=== PATIENT | female | born 1965 | race Caucasian/White ===

== ENCOUNTER 2018-05-27 07:05 | Day surgery (SDC) | payer MEDICAID ==
[2018-05-27] MEDS: CEFAZOLIN 1 GM/50 ML (PMX) 50 ML IVPB ×2 (08:00→10:30)
[2018-05-27] MEDS: SOD CHLORIDE 0.9% 1,000 ML IV (08:00)
[2018-05-27] MEDS: FENTAnyl 50 MCG/ML VIAL (10:32)
[2018-05-27] MEDS: MIDAZOLAM 1 MG/ML 2 ML INJ (10:34)
[2018-05-27] MEDS: LIDOCAINE 1%/EPI (1:100,000) (MDV) 20 ML (10:35)
[2018-05-27] MEDS: POLYMYXIN/BACITRACIN 1L IRRIG IRR (10:45)
[2018-05-27] MEDS: HEPARIN 1000 UNITS/ML 10 ML INJ (10:45)
[2018-05-27] MEDS ORDERED: HYDROCODONE/APAP (5/325) TAB PO (11:00)
== END 2018-05-27 12:20 | disposition home or self-care (01) ==
LOC: SDS 07:05
DX: C50.912 Malignant neoplasm of unspecified site of left female breast (principal)
CPT/HCPCS: 36561; 76942

== ENCOUNTER 2018-10-05 06:16 | Inpatient (IN) | payer MEDICAID ==
[2018-10-05 08:02] LABS: ADD MAN DIFF? NO
[2018-10-05 08:04] LABS: BASOPHILS % 0.7 % (0.0-2.0); EOSINOPHILS # 0.2 10^3/ul (0.0-0.5); EOSINOPHILS % 2.6 % (0.0-7.0); HEMATOCRIT 36.7 % (37.0-47.0); HEMOGLOBIN 11.8 g/dl (12.0-16.0); LYMPHOCYTES % 33.1 % (15.0-51.0); MEAN CORPUSCULAR HEMOGLOBIN 29.2 pg (29.0-33.0); MEAN CORPUSCULAR HGB CONC 32.2 g/dl (32.0-37.0); MEAN CORPUSCULAR VOLUME 90.8 fl (82.0-101.0); MEAN PLATELET VOLUME 9.1 fl (7.4-10.4); MONOCYTE # 0.5 10^3/ul (0.3-0.9); MONOCYTES % 7.7 % (0.0-11.0); NEUTROPHIL # 3.4 10^3/ul (1.6-7.5); NEUTROPHILS % 55.7 % (39.0-77.0); PLATELET COUNT 305 10^3/UL (140-415); RED BLOOD COUNT 4.04 10^6/ul (4.20-5.40); RED CELL DISTRIBUTION WIDTH 16.1 % (11.5-14.5)
[2018-10-05 08:04] LABS: WHITE BLOOD COUNT 6.1 10^3/ul (4.8-10.8)
[2018-10-05] MEDS ORDERED: FAMOTIDINE 20 MG INJ (08:34)
[2018-10-05] MEDS ORDERED: MIDAZOLAM 1 MG/ML 2 ML INJ (08:34)
[2018-10-05] MEDS ORDERED: CEFAZOLIN 1 GM INJ (08:34)
[2018-10-05] MEDS ORDERED: DESFLURANE 15 MIN (08:34)
[2018-10-05] MEDS ORDERED: FENTAnyl 50 MCG/ML VIAL (08:34)
[2018-10-05] MEDS ORDERED: LIDOCAINE 2% (SDV) 5 ML INJ (08:34)
[2018-10-05] MEDS ORDERED: ONDANSETRON 4 MG INJ (08:34)
[2018-10-05] MEDS ORDERED: PROPOFOL 200 MG INJ (08:34)
[2018-10-05] MEDS ORDERED: DEXAMETHASONE 4 MG/ML 5 ML INJ (08:35)
[2018-10-05] MEDS: SOD CHLORIDE 0.9% 1,000 ML IV (10:33)
[2018-10-05] MEDS: ACETAMINOPHEN 500 MG TAB PO (10:47)
[2018-10-05] MEDS ORDERED: HYDROmorphONE 1 MG/5 ML IV SYRINGE IV (11:00)
[2018-10-05] MEDS ORDERED: OXYCODONE/ACETAMINOPHEN (5/325) TAB PO ×2 (11:00)
[2018-10-05] MEDS ORDERED: ALBUTEROL 0.083% (NEB) 2.5 MG/3 ML AMP HHN (11:00)
[2018-10-05] MEDS ORDERED: LABETALOL HCL 20MG INJ IV (11:00)
[2018-10-05] MEDS ORDERED: DIPHENHYDRAMINE 50 MG INJ IV (11:00)
[2018-10-05] MEDS ORDERED: hydrALAzine 20 MG INJ IV (11:00)
[2018-10-05] MEDS ORDERED: EPHEDrine 25 MG/5 ML SYG IV (11:00)
[2018-10-05] MEDS ORDERED: FENTAnyl 50 MCG/ML VIAL IV ×2 (11:00)
[2018-10-05] MEDS ORDERED: ONDANSETRON 4 MG INJ IV ×2 (11:00→12:00)
[2018-10-05] MEDS ORDERED: morphine 2 MG INJ IV ×3 (11:00→12:00)
[2018-10-05] MEDS ORDERED: MEPERIDINE 25 MG INJ IV (11:00)
[2018-10-05 11:03] LABS: ALANINE AMINOTRANSFERASE 32 IU/L (13-69); ALBUMIN 4.5 g/dl (3.3-4.9); ALKALINE PHOSPHATASE 85 IU/L (42-121); ANION GAP 7 (5-13); ASPARTATE AMINO TRANSFERASE 30 IU/L (15-46); BILIRUBIN,INDIRECT 0.5 mg/dl (0-1.1); BILIRUBIN,TOTAL 0.5 mg/dl (0.2-1.3); BLOOD UREA NITROGEN 12 mg/dl (7-20); CARBON DIOXIDE 31 mmol/L (21-31); CHLORIDE 105 mmol/L (97-110); CREATININE 0.51 mg/dl (0.44-1.00); Estimated GFR > 60 mL/min (>60); GLUCOSE 114 mg/dl (70-220); POTASSIUM 3.6 mmol/L (3.5-5.1); SODIUM 143 mmol/L (135-144); TOTAL PROTEIN 7.7 g/dl (6.1-8.1)
[2018-10-05 11:08] LABS: CALCIUM 10.4 mg/dl (8.4-10.2)
[2018-10-05] MEDS: ISOSULFAN BLUE 1% 5 ML INJ SC (11:19)
[2018-10-05] MEDS ORDERED: KETAMINE (50 MG/ML) 10 ML VIAL (11:35)
[2018-10-05] MEDS ORDERED: PHENYLephrine (100 MCG/ML) 10ML SYG (11:39)
[2018-10-05] MEDS ORDERED: EPHEDrine 25 MG/5 ML SYG (11:39)
[2018-10-05] MEDS ORDERED: ACETAMINOPHEN 1000MG/100ML IV 100 ML IVPB (12:00)
[2018-10-05] MEDS: HYDROmorphONE 1 MG/5 ML IV SYRINGE IV ×2 (12:51→12:59)
[2018-10-05] MEDS: CEFAZOLIN 2 GM/50 ML (PMX) 50 ML IVPB (13:04)
[2018-10-05] MEDS: D5W-0.45 NACL + KCL 20 MEQ 1,000 ML IV ×3 (14:30→22:44)
[2018-10-05] MEDS: HYDROCODONE/APAP (5/325) TAB PO (18:19)
[2018-10-06] MEDS: HYDROCODONE/APAP (5/325) TAB PO ×2 (04:38→15:51)
[2018-10-06 05:07] LABS: ADD MAN DIFF? NO
[2018-10-06 05:10] LABS: BASOPHILS % 0.2 % (0.0-2.0); EOSINOPHILS % 0.3 % (0.0-7.0); HEMOGLOBIN 11.5 g/dl (12.0-16.0); LYMPHOCYTES # 1.8 10^3/ul (0.8-2.9); LYMPHOCYTES % 28.1 % (15.0-51.0); MEAN CORPUSCULAR HEMOGLOBIN 29.2 pg (29.0-33.0); MEAN CORPUSCULAR HGB CONC 31.9 g/dl (32.0-37.0); MEAN CORPUSCULAR VOLUME 91.4 fl (82.0-101.0); MEAN PLATELET VOLUME 9.2 fl (7.4-10.4); MONOCYTE # 0.5 10^3/ul (0.3-0.9); MONOCYTES % 8.3 % (0.0-11.0); NEUTROPHIL # 3.9 10^3/ul (1.6-7.5); NEUTROPHILS % 62.8 % (39.0-77.0); PLATELET COUNT 304 10^3/UL (140-415); RED BLOOD COUNT 3.94 10^6/ul (4.20-5.40)
[2018-10-06 05:10] LABS: WHITE BLOOD COUNT 6.2 10^3/ul (4.8-10.8)
[2018-10-06 05:34] LABS: ANION GAP 6 (5-13); BLOOD UREA NITROGEN 8 mg/dl (7-20); CALCIUM 10.2 mg/dl (8.4-10.2); CARBON DIOXIDE 26 mmol/L (21-31); CHLORIDE 108 mmol/L (97-110); CREATININE 0.51 mg/dl (0.44-1.00); Estimated GFR > 60 mL/min (>60); GLUCOSE 108 mg/dl (70-220); POTASSIUM 4.2 mmol/L (3.5-5.1); SODIUM 140 mmol/L (135-144)
[2018-10-06] MEDS: D5W-0.45 NACL + KCL 20 MEQ 1,000 ML IV (09:27)
== END 2018-10-06 17:00 | disposition home or self-care (01) | DRG 581 ==
LOC: SDS 06:16 → REC 12:01 → MS1 14:00
PROVIDERS: Surgery Surgical Oncology
PROC: 0HBU0ZZ Excision of Left Breast, Open Approach (ICD-10-PCS; principal; 2018-10-05 09:00)
PROC: 07B60ZX Excision of Left Axillary Lymphatic, Open Approach, Diagnostic (ICD-10-PCS; 2018-10-05 09:00)
DX: C50.912 Malignant neoplasm of unspecified site of left female breast (principal); R73.9 Hyperglycemia, unspecified; Z92.21 Personal history of antineoplastic chemotherapy
CPT/HCPCS: 80048; 80053; 85025; 88307; 88331; 88341; 88342